=== PATIENT | male | born 1985 | race Caucasian/White ===

== ENCOUNTER 2018-02-25 21:24 | Emergency (ER) | payer OTHER ==
[2018-02-25] MEDS ORDERED: HYDROCODONE/ACETAMINOPHEN 5-325 MG (6 TAB/ER DISP) PO PRN (22:20)
[2018-02-25] MEDS ORDERED: MORPHINE SULFATE 10 MG/ML INJ IM ONE (22:20)
--- NOTE | 2018-02-25 22:22 | ER Document Report ---
ED Neck/Back Problem - General Chief Complaint: Back Pain Stated Complaint: BACK PAIN Time Seen by Provider: 02/25/18 22:04 Mode of Arrival: Ambulatory Information source: Patient TRAVEL OUTSIDE OF THE [place] IN LAST 30 DAYS: No - HPI Patient complains to provider of: Pain, Lower back Onset: Yesterday Onset: Gradual Timing: Worse Quality of pain: Achy Severity: Moderate Associated symptoms: Radiation to leg Exacerbated by: Movement of trunk, Sitting position Relieved by: Nothing Similar symptoms previously: Yes Recently seen / treated by doctor: No Notes: Patient is a 32-year-old male presenting to the emergency room today complaining of left low back pain radiating down his left leg, he has a history of herniated disks and some chronic back pain which he exacerbated by driving 18 hours from [place], he denies any saddle anesthesia, no bowel or bladder dysfunction, no fevers, no specific fall or injury recently, he is in town until Friday visiting family - Related Data Allergies/Adverse Reactions: bismuth subsalicylate [From Pepto-Bismol] Allergy (Verified 02/25/18 21:32) ibuprofen Adverse Reaction (Verified 02/25/18 21:32) Past Medical History - General Information source: Patient - Social History Smoking Status: Current Every Day Smoker Frequency of alcohol use: None Drug Abuse: None Family History: Reviewed & Not Pertinent Patient has suicidal ideation: No Patient has homicidal ideation: No Renal/ Medical History: Denies: Hx Peritoneal Dialysis Review of Systems - Review of Systems Constitutional: No symptoms reported EENT: No symptoms reported Cardiovascular: No symptoms reported Respiratory: No symptoms reported Gastrointestinal: No symptoms reported Genitourinary: No symptoms reported Male Genitourinary: No symptoms reported Musculoskeletal: Back pain Skin: No symptoms reported Hematologic/Lymphatic: No symptoms reported Neurological/Psychological: No symptoms reported -: Yes All other systems reviewed and negative Physical Exam - Vital signs Vitals: Temp Pulse Resp BP Pulse Ox 98.0 F 98 16 141/105 H 98 02/25/18 21:31 02/25/18 21:31 02/25/18 21:31 02/25/18 21:31 02/25/18 21:31 - Notes Notes: - General General appearance: Appears well, Alert In distress: None - HEENT Head: Normocephalic, Atraumatic Eyes: Normal Conjunctiva: Normal Extraocular movements intact: Yes Eyelashes: Normal Pupils: PERRL - Respiratory Respiratory status: No respiratory distress - Cardiovascular Rhythm: Regular - Abdominal Inspection: Normal - Back Back: Tenderness to palpate in the left lumbar paraspinal musculature down into the buttock, pain with straight leg raise, distal sensation and motor is intact , 2+ DP pulses - Extremities General upper extremity: Normal inspection General lower extremity: Normal inspection - Neurological Neuro grossly intact: Yes Orientation: AAOx4 Points Coma Scale Eye Opening: Spontaneous Chanda Coma Scale Verbal: Oriented Points Coma Scale Motor: Obeys Commands Points Coma Scale Total: 15 - Psychological Associated symptoms: Normal affect, Normal mood - Skin Skin Temperature: Warm Skin Moisture: Dry Skin Color: Normal Course - Re-evaluation Re-evalutation: 02/25/18 22:43 32-year-old male who just drove 18 hours from [place], exacerbating his existing chronic low back pain, patient has no physical exam findings concerning for cauda equina syndrome or other acute emergent pathology, therefore given a Dosepak of 6 hydrocodone's and an injection of IM morphine, for pain relief, advised to follow-up with primary care or return if symptoms worsen, patient acknowledges understanding and agreement with this plan - Vital Signs Vital signs: Temp Pulse Resp BP Pulse Ox 98.6 F 90 18 142/68 H 98 02/25/18 23:31 02/25/18 23:31 02/25/18 23:31 02/25/18 23:31 02/25/18 23:31 Discharge - Discharge Clinical Impression: Low back pain Qualifiers: Chronicity: acute Back pain laterality: left Sciatica presence: with sciatica Sciatica laterality: sciatica of left side Qualified Code(s): M54.42 - Lumbago with sciatica, left side Condition: Stable Disposition: HOME, SELF-CARE Instructions: Ice Packs ([facility]), Low Back Pain ([facility]), Muscle Strain ([facility]), Oral Narcotic Medication ([facility]), Warm Packs ([facility]) Additional Instructions: Follow up with your primary care provider in one to 2 days. Return to the emergency room immediately if symptoms worsen or any additional concerns. Referrals: [facility],NO [Primary Care Provider] - Follow up as needed
[2018-02-25 23:33] VITALS: BP 142/68
== END 2018-02-25 23:30 | disposition home or self-care (01) ==
LOC: ER 21:24
DX: M54.42 Lumbago with sciatica, left side (principal); G89.29 Other chronic pain; F17.200 Nicotine dependence, unspecified, uncomplicated; Z88.8 Allergy status to other drugs, medicaments and biological substances
CPT/HCPCS: 99283; 96372; J2270